=== PATIENT | male | born 1990 | race Caucasian/White ===

== ENCOUNTER 2017-01-23 23:11 | Emergency (ER) | payer OTHER ==
[~2017-01-23] VITALS: Ht 188 cm; Wt 102.0 kg
[2017-01-24] MEDS ORDERED: AUGMENTIN875 MG PO (01:10)
[2017-01-24 01:18] VITALS: BP 149/104
== END 2017-01-24 01:18 | disposition home or self-care (01) ==
LOC: EME 23:11
DX: S61.210A Laceration without foreign body of right index finger without damage to nail, initial encounter (principal); S41.152A Open bite of left upper arm, initial encounter; Y04.1XXA Assault by human bite, initial encounter; Z23 Encounter for immunization; F17.200 Nicotine dependence, unspecified, uncomplicated
CPT/HCPCS: 94640; 99281; 99284